=== PATIENT | male | born 1970 | race Two or more races ===

== ENCOUNTER 2024-09-09 12:54 | Outpatient (AMB) | payer MEDICAID, SELFPAY ==
[2024-09-09 13:04] VITALS: BP 107/56; PULSE 82; RESP 18; TEMP 36.9; O2SAT 95; BMI 28.7
--- NOTE | 2024-09-09 13:04 | PD.GSCLVISIT ---
Vital Signs - [facility] 09/09/24 13:04 Height 1.7 m Height Method Stated Weight 83.036 kg Weight Measurement Method Standing Scale BMI 28.7 BP 107/56 L Blood Pressure Source Automatic Cuff Blood Pressure Location Right Upper Arm Position Sitting Respiration 18 Pulse 82 Pulse Source Monitor Temp 98.5 F Temp Source Temporal Artery Scan Pulse Oximetry (%) 95 Oxygen Delivery Method Room Air Med/Allergies Allergies & Medications Allergies No Known Allergies Allergy (Verified 09/09/24 13:06) Medication Reconciliation aspirin 81 mg tablet,delayed release (Aspir-Low) 81 mg PO QDAY #90 tabs 07/01/19 [Rx Confirmed 09/09/24] atorvastatin 20 mg tablet 80 mg (4 x 20 mg) PO HS #90 tabs 07/01/19 [Rx Confirmed 09/09/24] dapagliflozin propanediol 5 mg tablet (Farxiga) 5 mg PO QDAY 08/21/24 [History Confirmed 09/09/24] lisinopril 10 mg tablet 10 mg PO QDAY 08/21/24 [History Confirmed 09/09/24] docusate sodium 100 mg capsule (Colace) 100 mg PO BID #30 caps 08/23/24 [Rx Confirmed 09/09/24] MA Intake Visit Data Collection New Patient or Established: Established Patient (seen at [facility] within 3 years) Seen by Clinical Staff ONLY (RN/MA): No Reason for Visit:: 2 WEEK FOLLOW UP Pain Present Currently: No Pain scale:: 0 Appliance Service Technician Required: Yes PCP or OBGYN visit in last 3 months: Yes Hx Now: No Do You Feel Safe at Home: Yes Authorities Contacted: N/A Smoking Status Smoking Status: Never smoker Immunization / Flu Flu Vaccine in the Last 12 Months: No Flu Vaccine Exclusion Criteria: Refused by Patient Past Medical History Past Medical History NEUROLOGIC: Positive Neurological Disorders and Transient Ischemic Attacks (TIA) (4 yrs ago) CARDIAC: Positive Cardiac Disorders, Hypercholesterolemia (x1) and Hypertension; Negative Congestive Heart Failure RESPIRATORY: Negative Chronic Obstructive Pulmonary Disease (COPD) or Asthma GASTROINTESTINAL: Negative Gastrointestinal Disorders or Hepatitis GENITOURINARY: Negative Genitourinary Disorders or Renal Disease ENDOCRINE: Positive Endocrine Disorders and Diabetes Mellitus Type 2 (Farxiga 5mg daily); Negative Diabetes Mellitus Type 1 HEMATOLOGIC: Negative Blood Disorders or Sickle Cell Disease OTHER HISTORY: Negative Autoimmune Disease, Falls, Human Immunodeficiency Virus (HIV), Chicken Pox, Measles, Mumps, Rubella (Turkish Measles), Pertussis, Clostridium Difficile or Cancer Family History FAMILY HISTORY: Positive Family Gastrointestinal Problems (dad(intestinal issues), mom gall bladder), Family Cancer (breast ca(mom)) and Family Surgery (dad(intestinal issues)); Negative Family Psychiatric Problems, Family Respiratory Disorders, Family Cardiac Disorders or Family Anesthesia Reaction Social History SMOKING STATUS: Smoking status: Never smoker ALCOHOL: Alcohol Intake: Current ALCOHOL FREQUENCY: Alcohol Intake Frequency: holidays/special occasions only HOUSING: Housing: House LIVES WITH: Lives With: Spouse HPI HPI Narrative 54M who presented with acute appendicitis with localized perforation, admitted 08/21-08/23 here for planned follow up. Pt reports feeling very well with no pain, no nausea, he is eating regularly and having normal bowel function ROS Review of Systems Systems Reviewed: All systems reviewed, normal except as documented Objective/Exam General General Appearance: alert, cooperative and well groomed Resp Respiratory exam: Absent respiratory distress Assessment & Plan Diagnosis / Problem List (1) Appendicitis with perforation: Status: Acute Assessment & Plan: 54M treated conservatively for acute appendicitis with localized perforation, recovering very well. I advised pt to follow up with his PMD regarding a colonoscopy as he has never had one before. All questions were answered and pt is encouraged to reach out as needed Office Procedures GNS Level of Care Nursing/Assessment Patient Status: Established Patient Nursing Assessment/Reassesment: Medication Reconciliation, Update PMH in EMR and Vital Signs Coordination of Care: Complex Care and Chronic Disease 1-5, Education Complex Pt/Fam, Consent,records obtained, informed consent, Results/Orders obtained and Staff clarify orders Special Needs: Language special needs Established Patient Charge Established Patient Point Assignment: 95 Established Patient Point Charge: EP Level 3 (80-115) Patient Portal Questionaires Social History Living Situation History Housing: House Tobacco History Smoking Status: Never smoker Alcohol History Alcohol Intake: Current Alcohol Intake Frequency: holidays/special occasions only Domestic Abuse History Do You Feel Safe at Home: Yes Review of Systems Report any current symptoms Only answer those that you have currently: Past Medical History Past Medical History Have you ever been diagnosed with any of the following: Neurological Problems Transient Ischemic Attacks (TIA): Yes (4 yrs ago) Cardiology Problems Hypercholesterolemia: Yes (x1) Congestive Heart Failure: No Hypertension: Yes Respiratory Problems Chronic Obstructive Pulmonary Disease (COPD): No Asthma: No Stomache/Intestinal Problems Hepatitis: No Genital/Urinary Problems Renal Disease: No Endocrine Problems Diabetes Mellitus Type 1: No Diabetes Mellitus Type 2: Yes (Farxiga 5mg daily) Blood Problems Sickle Cell Disease: No Other Problems Autoimmune Disease: No Falls: No Human Immunodeficiency Virus (HIV): No Chicken Pox: No Measles: No Mumps: No Rubella (Turkish Measles): No Pertussis: No Clostridium Difficile: No Cancer: No
== END 2024-09-09 13:12 | disposition home or self-care (01) ==
LOC: HODSRG 12:54
PROVIDERS: PCP Physician Assistant; Referring Provider Physician Assistant; Supervising Provider Surgery; Visit Provider Surgery
DX: Z48.815 Encounter for surgical aftercare following surgery on the digestive system (principal)
CPT/HCPCS: 99213; G0463

== ENCOUNTER 2025-08-17 09:05 | Day surgery (SDC) | payer MEDICAID, SELFPAY ==
[2025-08-16 13:20] VITALS: BMI 28.6
[2025-08-17] VITALS (21 sets, daily range): BP systolic 103–131; BP diastolic 61–91; PULSE 65–87; RESP 9–19; TEMP 36.6–36.8; O2SAT 96–100; BMI 29.2
[2025-08-17] MEDS: RINGERS LACTATED 1000 ML 1,000 ML 60 ML IV (11:15)
--- NOTE | 2025-08-17 12:33 | SUR.PHASEII ---
patient into recovery with no acute distress noted, v/s stable, patient awake, positions self for comfort, report received from Carol LIN. patient blood glucose is 58, patient drinking orange juice.
--- NOTE | 2025-08-17 13:17 | SUR.PHASEII ---
patient drank 3 orange juice boxes, blood glucose recheck is 95. patient denies pain and nausea.
--- NOTE | 2025-08-17 13:30 | SUR.PHASEII ---
D/C instructions given to Quinn (patient's son) and patient. informed of patient's previously low blood sugar. educated to monitor blood sugar at home and to eat. Quinn verbalizes understanding. patient discharged home.
== END 2025-08-17 13:30 | disposition home or self-care (01) ==
PROVIDERS: PCP Physician Assistant; Referring Provider Specialist; Visit Provider Specialist
PROC: 0DJD8ZZ Inspection of Lower Intestinal Tract, Via Natural or Artificial Opening Endoscopic (ICD-10-PCS; CPT 45378; principal; 2025-08-17 09:30)
DX: Z12.11 Encounter for screening for malignant neoplasm of colon (principal); D12.0 Benign neoplasm of cecum; K64.9 Unspecified hemorrhoids
CPT/HCPCS: 45385; A4649; J1200; J2250; J3010; J7120